=== PATIENT | male | born 1940 | race Caucasian/White ===

== ENCOUNTER 2018-12-18 15:13 | Emergency (ER) | payer MEDICARE ==
[~2018-12-18] VITALS: Ht 170.2 cm; Wt 76.5 kg
[2018-12-18] MEDS ORDERED: HYDR-3965 PO (16:09)
[2018-12-18 16:59] VITALS: BP 163/74
== END 2018-12-18 17:01 | disposition home or self-care (01) ==
LOC: ER 15:13
DX: S52.592A Other fractures of lower end of left radius, initial encounter for closed fracture (principal); I10 Essential (primary) hypertension; W18.49XA Other slipping, tripping and stumbling without falling, initial encounter; Y93.89 Activity, other specified; Y92.89 Other specified places as the place of occurrence of the external cause; Y99.9 Unspecified external cause status
CPT/HCPCS: 29125; 73110; 99284